=== PATIENT | male | born 1995 | race Caucasian/White ===

== ENCOUNTER 2019-01-07 05:15 | Emergency (ER) | payer OTHER ==
[2019-01-07] MEDS ORDERED: Bacitracin/Neomycin/Polymyxin B Oint 0.9 GM U/D Packet TOP ONE (06:02)
--- NOTE | 2019-01-07 06:11 | EDM.PDOC ---
ED HPI GENERAL MEDICAL PROBLEM - General Chief Complaint: General Stated Complaint: laceration Time Seen by Provider: 01/07/19 05:47 Source of Information: Reports: Patient History Limitations: Reports: No Limitations - History of Present Illness INITIAL COMMENTS - FREE TEXT/NARRATIVE: He presents to the emergency department for evaluation of a laceration to his right index finger. He got the finger caught on a door at work about an hour prior to arrival. He has persistent bleeding from the wound despite putting pressure on it. Good movement of the finger. No numbness or tingling in the finger. He denies any other injury. He is otherwise without complaints. - Related Data Allergies Allergy/AdvReac Type Severity Reaction Status Date / Time amoxicillin Allergy Swelling Verified 01/07/19 05:27 azithromycin Allergy Hives Verified 01/07/19 05:27 Home Meds: Home Meds Fluticasone Propionate [Flonase] 1 inhalation INH DAILY PRN 01/07/19 [History] ED ROS GENERAL - Review of Systems Review Of Systems: See Below Constitutional: Reports: No Symptoms HEENT: Reports: No Symptoms Respiratory: Reports: No Symptoms Cardiovascular: Reports: No Symptoms Endocrine: Reports: No Symptoms GI/Abdominal: Reports: No Symptoms : Reports: No Symptoms Musculoskeletal: Reports: Other (Laceration index figer) Skin: Reports: Wound (Laceration right index finger) Neurological: Reports: No Symptoms Psychiatric: Reports: No Symptoms Hematologic/Lymphatic: Reports: No Symptoms Immunologic: Reports: No Symptoms ED EXAM, GENERAL - Physical Exam Exam: See Below Free Text/Narrative:: Healthy appearing adult gentleman in no acute distress. Right hand: 2.5 x 1 cm laceration on the dorsal aspect of the right index finger, over and proximal to the PIP joint which extends into the subcutaneous tissue.no other lacerations. Full movement of the finger. Normal strength with resisted flexion and extension at the PIP and DIP joints. The remainder of the hand is within normal limits. ED GENERAL MEDICAL PROCEDURES - Laceration/Wound Repair right index finer Lac/wound length in cm: 2.5 Appearance: Subcutaneous, Clean Distal NVT: Neuro & Vascular Intact Anesthetic Type: Digital Local Anesthesia - Lidocaine (Xylocaine): 1% Plain Local Anesthetic Volume: Other Skin Prep: Providone-Iodine (Betadine) Saline irrigation (cc's): 20 Exploration/Debridement/Repair: Wound Explored, Explored to Base, Minimal Debridement Closed with: Sutures Suture Size: 3-0 # of Sutures: 7 Suture Type: Simple, Other (Ethilon) Complication Description: None Progress/Comments: Antibiotic ointment and dressing applied. Course - Vital Signs Last Recorded V/S: Last Vital Signs Temp 37.0 C 01/07/19 05:15 Pulse 126 H 01/07/19 05:15 Resp 16 01/07/19 05:15 BP 137/72 01/07/19 05:15 Pulse Ox 98 01/07/19 05:15 - Orders/Labs/Meds Orders: Active Orders 24 hr Category Date Time Status Vaccines to be Administered [RC] PER UNIT ROUTINE Care 01/07/19 06:36 Active Meds: Medications Discontinued Medications Generic Name Dose Route Start Last Admin Trade Name Zaida PRN Reason Stop Dose Admin Diphtheria/Tetanus/Acell Pertussis 0.5 ml 01/07/19 06:35 01/07/19 06:48 Adacel IM 01/07/19 06:36 0.5 ml .ONCE ONE Administration Lidocaine HCl 10 ml 01/07/19 05:52 01/07/19 06:02 Xylocaine-Mpf 1% INJECT 01/07/19 05:53 10 ml ONETIME ONE Administration Lidocaine HCl Confirm 01/07/19 05:56 01/07/19 06:02 Xylocaine-Mpf 1% Administered 01/07/19 05:57 Not Given Dose 5 ml .ROUTE .STK-MED ONE Neomycin/Polymyxin/Bacitracin 1 each 01/07/19 06:02 01/07/19 06:09 Triple Antibiotic Oint TOP 01/07/19 06:03 1 each ONETIME ONE Administration Departure - Departure Time of Disposition: 06:45 Disposition: Home, Self-Care 01 Clinical Impression: Laceration of right index finger - Discharge Information Instructions: Sutured Wound Care Referrals: PCP,None [Primary Care Provider] - Forms: ED Department Discharge Care Plan Goals: Keep dressing on the and of the wound dry for 24 hours. Normal activity as tolerated by pain. Monitor for any signs of infection. Followup if this occurs. Return in 11 days for suture removal. - Problem List & Annotations (1) Laceration of right index finger w/o foreign body w/o damage to nail SNOMED Code(s): 941123271 Code(s): S61.210A - LACERATION W/O FB OF R IDX FNGR W/O DAMAGE TO NAIL, INIT Status: Acute Qualifiers: Encounter type: initial encounter Qualified Code(s): S61.210A - Laceration without foreign body of right index finger without damage to nail, initial encounter - Problem List Review Problem List Initiated/Reviewed/Updated: Yes - My Orders Last 24 Hours: My Active Orders 01/07/19 06:36 Vaccines to be Administered [RC] PER UNIT ROUTINE - Assessment/Plan Last 24 Hours: My Active Orders 01/07/19 06:36 Vaccines to be Administered [RC] PER UNIT ROUTINE Plan: The laceration is repaired in usual fashion. See procedure note. Keep the dressing on and the finger dry for 24 hours. Normal activity as tolerated by pain. Followup of with any signs of infection which were discussed. He was given a tetanus booster today. Suture removal in 11 days.
[2019-01-07] MEDS ORDERED: Diphtheria,Pertussis(Acell),Tetanus Vaccine 0.5 ML SDV IM ONE (06:35)
== END 2019-01-07 07:00 | disposition home or self-care (01) ==
LOC: LL.ED 05:15
DX: S61.210A Laceration without foreign body of right index finger without damage to nail, initial encounter (principal); Z88.1 Allergy status to other antibiotic agents; Z79.899 Other long term (current) drug therapy; Z23 Encounter for immunization; W23.1XXA Caught, crushed, jammed, or pinched between stationary objects, initial encounter; Y99.0 Civilian activity done for income or pay
CPT/HCPCS: 12001; 90471; 90715; 99283; J2001